=== PATIENT | male | born 1945 | race Caucasian/White ===

== ENCOUNTER 2016-05-03 16:32 | Inpatient (IN) | payer BC, OTHER ==
[~2016-05-03] VITALS: Ht 175.3 cm; Wt 85.7 kg
[~2016-05-03 16:32] MED LIST: AMLODIPINE BESYL5 MG PO; CIPRO500 MG PO; FLAGYL500 MG PO; LANSOPRAZOLE30 MG PO; PERCOCET 5/31 TABLET PO; PREVACID; SIMVASTATIN20 MG PO; SIMVASTATIN5 MG; TERAZOSIN; VIAGRA50 MG PO; ZESTORETIC 20-1 EAC1 NG
[2016-05-03 17:41] LABS: ADD MIUA? YES; BILIRUBIN MODERATE; BLOOD SMALL; COLOR AMBER ((YELLOW)); GLUCOSE (STRIP) NEGATIVE; KETONES NEGATIVE; LEUKOCYTES NEGATIVE; NITRITE NEGATIVE; PROTEIN (STRIP) 30; SPECIFIC GRAVITY 1.026 (1.000-1.030)
[2016-05-03 17:50] LABS: BACTERIA RARE /HPF; EPITHELIAL CELLS NONE SEEN /HPF; MUCUS TRACE /LPF; UCUL ADDED? NO; WHITE BLOOD CELLS 0-5 /HPF (0-5)
[2016-05-03 17:54] LABS: HEMATOCRIT 47.2 % (38.0-50.0); MCH 29.1 PG (29.0-34.0); MCHC 34.7 G/DL (30.0-36.0); MCV 83.8 FL (86-99); MEAN PLAT.VOLUME 9.6 uM^3 (9.0-12.4); PLATELET COUNT 182 K/uL (156-360); RBC DIS.WIDTH-CV 13.2 % (11.8-14.6); RBC DIS.WIDTH-SD 40.9 % (39-53); RED BLOOD COUNT 5.63 M/uL (4.00-5.50); WHITE BLOOD COUNT 15.5 K/uL (4.1-10.2)
[2016-05-03 17:57] LABS: ICTOTEST POSITIVE
[2016-05-03 18:05] LABS: CHLORIDE 98 mEq/L (99-109); POTASSIUM 3.5 mEq/L (3.7-5.4); SODIUM 136 mEq/L (136-147)
[2016-05-03 18:07] LABS: GLUCOSE 97 mg/dL (70-99)
[2016-05-03 18:09] LABS: ANION GAP 10 MEQ/L (2-14); TOTAL BILIRUBIN 6.7 mg/dL (0.0-1.0)
[2016-05-03 18:11] LABS: ALKALINE PHOSPHATASE 104 IU/L (3-129); GFR ESTIMATE (CALCULATED) 54 mL/min/
[2016-05-03 18:12] LABS: UREA NITROGEN (BUN) 24 mg/dL (9-23)
[2016-05-03 18:13] LABS: DIRECT BILIRUBIN 3.8 mg/dL (0.0-0.3)
[2016-05-03 18:14] LABS: LIPASE 12 U/L (1.0-51.0)
[2016-05-03 18:15] LABS: CREATINE KINASE 330 IU/L (1-294); TOTAL CK 330 IU/L (1-294)
[2016-05-03 18:20] LABS: TROP-I INTERPRETATION NEGATIVE; TROPONIN-I 0.03 ng/mL (0.0-0.30)
[2016-05-03 18:21] LABS: CK-MB 0.8 ng/mL (0.0-4.9)
[2016-05-03 20:22] VITALS: BP 130/67
[2016-05-03 23:34] VITALS: BP 114/62
[2016-05-04 04:05] VITALS: BP 116/66
[2016-05-04 07:50] VITALS: BP 119/69
[2016-05-04 09:28] LABS: EOSINOPHIL (%) 0.3 % (0-5); HEMATOCRIT 41.6 % (38.0-50.0); IMMATURE GRANULOCYTE (%) 0.6 % (0.0-0.7); IMMATURE GRANULOCYTE COUNT 0.1 K/uL; INSTRUMENT ABS NEUTROPHIL CT 9.3 K/uL; LYMPHOCYTE COUNT 0.5 K/uL (1.0-2.8); MCH 29.1 PG (29.0-34.0); MCHC 34.4 G/DL (30.0-36.0); MCV 84.6 FL (86-99); MONOCYTE COUNT 0.5 K/uL (0-0.8); NEUTROPHIL (%) 88.8 % (45-76); NEUTROPHIL COUNT 9.3 K/uL (1.8-6.4); PLATELET COUNT 141 K/uL (156-360); RBC DIS.WIDTH-CV 13.2 % (11.8-14.6); RBC DIS.WIDTH-SD 40.6 % (39-53); RED BLOOD COUNT 4.92 M/uL (4.00-5.50)
[2016-05-04 09:30] LABS: WHITE BLOOD COUNT 10.5 K/uL (4.1-10.2)
[2016-05-04 09:31] LABS: ALKALINE PHOSPHATASE 76 IU/L (3-129); ANION GAP 11 MEQ/L (2-14); CHLORIDE 97 MEQ/L (99-109); GFR ESTIMATE (CALCULATED) 58 mL/min/; GLUCOSE 80 mg/dL (70-99); POTASSIUM 2.9 MEQ/L (3.7-5.4); SAMPLE HEMOLYSIS CHECK 0; SAMPLE ICTERIC CHECK 1; SAMPLE LIPEMIA CHECK 0; SODIUM 137 MEQ/L (136-147); UREA NITROGEN (BUN) 23 mg/dL (9-23)
[2016-05-04 16:20] VITALS: BP 137/75
[2016-05-04 20:32] VITALS: BP 130/82
[2016-05-04 23:31] VITALS: BP 111/65
[2016-05-05 06:24] LABS: EOSINOPHIL (%) 1.3 % (0-5); EOSINOPHIL COUNT 0.1 K/uL (0-0.3); HEMATOCRIT 40.5 % (38.0-50.0); IMMATURE GRANULOCYTE (%) 0.9 % (0.0-0.7); IMMATURE GRANULOCYTE COUNT 0.1 K/uL; INSTRUMENT ABS NEUTROPHIL CT 5.5 K/uL; LYMPHOCYTE COUNT 0.5 K/uL (1.0-2.8); MCH 28.8 PG (29.0-34.0); MCHC 34.1 G/DL (30.0-36.0); MCV 84.6 FL (86-99); MEAN PLAT.VOLUME 9.8 uM^3 (9.0-12.4); MONOCYTE (%) 8.6 % (3-12); MONOCYTE COUNT 0.6 K/uL (0-0.8); NEUTROPHIL (%) 81.6 % (45-76); NEUTROPHIL COUNT 5.5 K/uL (1.8-6.4); PLATELET COUNT 142 K/uL (156-360); RBC DIS.WIDTH-CV 13.1 % (11.8-14.6); RBC DIS.WIDTH-SD 40.4 % (39-53); RED BLOOD COUNT 4.79 M/uL (4.00-5.50)
[2016-05-05 06:32] LABS: ALKALINE PHOSPHATASE 76 IU/L (3-129); ANION GAP 7 MEQ/L (2-14); CHLORIDE 103 MEQ/L (99-109); GFR ESTIMATE (CALCULATED) > 59 mL/min/; GLUCOSE 100 mg/dL (70-99); SAMPLE HEMOLYSIS CHECK 0; SAMPLE ICTERIC CHECK 1; SAMPLE LIPEMIA CHECK 0; SODIUM 140 MEQ/L (136-147); UREA NITROGEN (BUN) 14 mg/dL (9-23)
[2016-05-05 06:37] LABS: POTASSIUM 3.5 MEQ/L (3.7-5.4); TOTAL BILIRUBIN 3.1 MG/DL (0.0-1.0); WHITE BLOOD COUNT 6.7 K/uL (4.1-10.2)
[2016-05-05 07:39] VITALS: BP 128/72
[2016-05-05 17:05] VITALS: BP 147/83
[2016-05-05 23:55] VITALS: BP 165/81
[2016-05-06 06:40] LABS: ALKALINE PHOSPHATASE 79 IU/L (3-129); ANION GAP 12 MEQ/L (2-14); CHLORIDE 101 MEQ/L (99-109); GFR ESTIMATE (CALCULATED) > 59 mL/min/; GLUCOSE 127 mg/dL (70-99); SAMPLE HEMOLYSIS CHECK 0; SAMPLE ICTERIC CHECK 0; SAMPLE LIPEMIA CHECK 0; SODIUM 138 MEQ/L (136-147); UREA NITROGEN (BUN) 15 mg/dL (9-23)
[2016-05-06 07:27] LABS: MCH 29.1 PG (29.0-34.0); MCHC 35.1 G/DL (30.0-36.0); MCV 82.9 FL (86-99); RBC DIS.WIDTH-CV 12.9 % (11.8-14.6); RBC DIS.WIDTH-SD 39.3 % (39-53); RED BLOOD COUNT 5.19 M/uL (4.00-5.50)
[2016-05-06 07:38] LABS: PLATELET COUNT 196 K/uL (156-360); WHITE BLOOD COUNT 11.7 K/uL (4.1-10.2)
[2016-05-06 08:21] VITALS: BP 166/77
[2016-05-06 10:58] VITALS: BP 164/92
[2016-05-06 11:35] VITALS: BP 138/75
[2016-05-06 16:22] VITALS: BP 158/84
[2016-05-07 00:06] VITALS: BP 112/59
[2016-05-07 07:20] VITALS: BP 142/90
[2016-05-07 08:55] LABS: EOSINOPHIL (%) 0.6 % (0-5); EOSINOPHIL COUNT 0.1 K/uL (0-0.3); HEMATOCRIT 41.7 % (38.0-50.0); IMMATURE GRANULOCYTE (%) 0.8 % (0.0-0.7); IMMATURE GRANULOCYTE COUNT 0.1 K/uL; INSTRUMENT ABS NEUTROPHIL CT 5.8 K/uL; LYMPHOCYTE COUNT 1.1 K/uL (1.0-2.8); MCH 29.1 PG (29.0-34.0); MCHC 34.3 G/DL (30.0-36.0); MCV 84.8 FL (86-99); MEAN PLAT.VOLUME 9.9 uM^3 (9.0-12.4); MONOCYTE (%) 8.9 % (3-12); MONOCYTE COUNT 0.7 K/uL (0-0.8); NEUTROPHIL COUNT 5.8 K/uL (1.8-6.4); PLATELET COUNT 188 K/uL (156-360); RBC DIS.WIDTH-CV 13.2 % (11.8-14.6); RED BLOOD COUNT 4.92 M/uL (4.00-5.50)
[2016-05-07 08:56] LABS: WHITE BLOOD COUNT 7.8 K/uL (4.1-10.2)
[2016-05-07 09:09] LABS: ALKALINE PHOSPHATASE 71 IU/L (3-129); ANION GAP 10 MEQ/L (2-14); CHLORIDE 102 MEQ/L (99-109); GFR ESTIMATE (CALCULATED) > 59 mL/min/; GLUCOSE 85 mg/dL (70-99); POTASSIUM 3.3 MEQ/L (3.7-5.4); SAMPLE HEMOLYSIS CHECK 0; SAMPLE ICTERIC CHECK 0; SAMPLE LIPEMIA CHECK 0; SODIUM 140 MEQ/L (136-147); TOTAL BILIRUBIN 1.6 MG/DL (0.0-1.0); UREA NITROGEN (BUN) 11 mg/dL (9-23)
[2016-05-07] MEDS ORDERED: NORCO 5/3251 TABLET PO (09:20)
[2016-05-07] MEDS ORDERED: LEVAQUIN500 MG PO (09:26)
[2016-05-07 10:49] VITALS: BP 150/76
== END 2016-05-07 15:03 | disposition home or self-care (01) | DRG 418 ==
LOC: EME 16:32 → 3EAST 17:57 → EDOF 17:57 → 3EAST 20:14
PROVIDERS: Emergency Medicine; Physician Assistant Surgical
PROC: 0FT44ZZ Resection of Gallbladder, Percutaneous Endoscopic Approach (ICD-10-PCS; principal; 2016-05-05)
DX: K80.00 Calculus of gallbladder with acute cholecystitis without obstruction (principal); R78.81 Bacteremia; K76.89 Other specified diseases of liver; R79.9 Abnormal finding of blood chemistry, unspecified; K21.9 Gastro-esophageal reflux disease without esophagitis; I10 Essential (primary) hypertension; E78.5 Hyperlipidemia, unspecified; N20.0 Calculus of kidney; D72.829 Elevated white blood cell count, unspecified
CPT/HCPCS: 70450; 74176; 74183; 76705; 80048; 80053; 80076; 81003; 82550; 82553; 83690; 84484; 85025; 85027; 87040; 87077; 87086; 87186; 87801; 88304; 93005; 99281; 99283; J0295; J1100; J1170; J1650; J2250; J2270; J2405; J2543; J2710; J3010; J3480; J7030; J7050